=== PATIENT | female | born 1985 | race Two or more races ===

== ENCOUNTER 2016-07-20 02:29 | Emergency (ER) | payer OTHER ==
[2016-07-20] MEDS ORDERED: KETOROLAC TROMETHAMINE 60 MG/2 ML VIAL ONE (03:29)
[2016-07-20] MEDS ORDERED: SULFAMETHOXAZOLE 800 MG/TRIMETHOPRIM 160 MG TABLET ONE (03:29)
[2016-07-20] MEDS ORDERED: HYDROCODONE/ACETAMINOPHEN 5/325MG TABLET ONE (03:29)
== END 2016-07-20 03:58 | disposition home or self-care (01) ==
LOC: ED 02:29
DX: L03.116 Cellulitis of left lower limb (principal); J45.909 Unspecified asthma, uncomplicated; F17.210 Nicotine dependence, cigarettes, uncomplicated; Z79.2 Long term (current) use of antibiotics
CPT/HCPCS: 99283 ×2; 96372; A9270 ×2; J1885